=== PATIENT | male | born 1955 | race Caucasian/White ===

== ENCOUNTER 2019-12-01 10:58 | Emergency (ER) | payer MEDICARE ==
[~2019-12-01] VITALS: Ht 180.3 cm; Wt 81.6 kg
--- NOTE | 2019-12-01 11:18 | NUR ---
BIB EMS FOR EVALUATION OF R ULNAR FRACTURE. FROM [facility]. PT UNABLE TO ANSWER QUESTIONS APPROPRIATELY. AOX2, VSS, RR EVEN AND UNLABORED ON RA. NO ACUTE DISTRESS NOTED. MADE COMFORTABLE AND READY FOR EVAL.
[2019-12-01 11:31] LABS: BASOPHILS # (AUTO) 0.1 /CMM (0.0-0.2); BASOPHILS % (AUTO) 0.8 % (0.0-2.0); EOSINOPHILS % (AUTO) 4.2 % (0.0-6.0); HEMATOCRIT 41 % (39-51); HEMOGLOBIN 13.2 g/dL (13.5-17.5); LYMPHOCYTES # (AUTO) 1.2 /CMM (0.8-4.8); LYMPHOCYTES % (AUTO) 18.1 % (20.0-44.0); MEAN CORPUSCULAR HGB CONC 32 g/dl (31.0-36.0); MEAN CORPUSCULAR VOLUME 83 fL (80-96); MONOCYTES # (AUTO) 0.6 /CMM (0.1-1.30); MONOCYTES % (AUTO) 8.6 % (2.0-12.0); NEUTROPHILS # (AUTO) 4.6 /CMM (1.8-8.9); NEUTROPHILS % (AUTO) 68.3 % (43.0-81.0); PLATELET COUNT (AUTO) 146 /CMM (150-450); WHITE BLOOD COUNT (AUTO) 6.8 K/uL (4.3-11.0)
[2019-12-01 11:48] LABS: ALBUMIN 3.3 g/dL (3.4-5.0); BILIRUBIN,TOTAL 0.3 mg/dL (0.2-1.0); CALCIUM, SERUM 9.3 mg/dL (8.5-10.1); CREATININE 0.9 mg/dL (0.6-1.3); POTASSIUM 4.1 mmol/L (3.5-5.1); TOTAL PROTEIN, SERUM 6.5 g/dL (6.4-8.2)
--- NOTE | 2019-12-01 11:54 | NUR ---
MISTY RAMIREZ AT BEDSIDE FOR EKG
--- NOTE | 2019-12-01 13:06 | NUR ---
Patient is resting comfortably in bed with eyes closed. Easily aroused. VSS
--- NOTE | 2019-12-01 13:37 | NUR ---
[facility] ETA 1500 TRIP#[id number]
--- NOTE | 2019-12-01 15:00 | NUR ---
CALL FROM [facility],INTAKE, STS THAT THEY WERWE EXPECTING TIS PATIENT SINCE YESTERDAY FOR GPS, NICOLE ROMEROW CALLED FOR EVAL
--- NOTE | 2019-12-01 15:24 | NUR ---
PT OUT OF BED, ATTEMPTING TO PULL OFF SPLINT. MATERIALS HANDLING COORDINATOR AWARE
--- NOTE | 2019-12-01 16:20 | NUR ---
CALL RECEIVED FROM [facility] THAT THEY ARE UNABLE TO ADMIT PATIENT TO GPS DUE TO FX/SPLINT, DEGRASSE LOFT PATTERNMAKER INFORMED.
[2019-12-01 16:29] LABS: ACETAMINOPHEN 1 ug/ml (10-30); ALCOHOL, BLOOD < 3 mg/dL (0-0)
[2019-12-01 16:30] LABS: SALICYLATE 1.6 mg/dL (2.8-20.0)
--- NOTE | 2019-12-01 16:38 | NUR ---
[facility] ETA [id number]
--- NOTE | 2019-12-01 17:08 | NUR ---
PT CONTINOUSLY TRIES TO WANDER. MUST BE ENCOURAGED BACK TO BED.
--- NOTE | 2019-12-01 17:50 | NUR ---
PT REMOVED SECOND SPLINT. EVP OPERATIONS AWARE.
--- NOTE | 2019-12-01 19:08 | NUR ---
REPORT GIVEN TO [facility] EMT UNIT # [id number], AND ANNALEE AT [facility].
[2019-12-01 19:11] VITALS: BP 121/76
== END 2019-12-01 19:12 ==
LOC: ER 10:58
DX: S52.691A Other fracture of lower end of right ulna, initial encounter for closed fracture (principal); F03.90 Unspecified dementia, unspecified severity, without behavioral disturbance, psychotic disturbance, mood disturbance, and anxiety; R45.1 Restlessness and agitation; R94.31 Abnormal electrocardiogram [ECG] [EKG]; F41.9 Anxiety disorder, unspecified; F20.9 Schizophrenia, unspecified; X58.XXXA Exposure to other specified factors, initial encounter; Y93.89 Activity, other specified; Y92.89 Other specified places as the place of occurrence of the external cause; Y99.8 Other external cause status
CPT/HCPCS: 29125; 36415; 71045; 73090; 80053; 80307; 80329; 85025; 85610; 93005; 99285; G0480